=== PATIENT | female | born 1975 | race Two or more races ===

== ENCOUNTER 2017-02-19 15:09 | Emergency (ER) | payer MEDICAID ==
[2017-02-19] MEDS ORDERED: KETOROLAC TROMETHAMINE 30 MG/ML 1 ML VIAL ONE (16:32)
[2017-02-19] MEDS ORDERED: ONDANSETRON 4 MG/2ML 2 ML VIAL ONE (16:32)
[2017-02-19 16:47] LABS: ABSOLUTE NEUTROPHIL COUNT 5.7 K/mm3 (1.8-7.7); BASO % 0.4 % (0.2-1.0); EOS # 0.1 (0.0-0.5); EOS % 1.1 % (0.9-2.9); HEMATOCRIT 34.7 % (37.0-47.0); IMM NEUT% 0.2 % (0-1); LYMPH % 24.1 % (15-45); MEAN CELL VOLUME 79.8 fl (81.0-99.0); MEAN CORPUSCULAR HEMOGLOBIN 25.3 pg (27.0-31.0); MEAN CORPUSCULAR HGB CONC 31.7 g/dl (33.0-37.0); MEAN PLATELET VOLUME 10.3 fl (7.4-10.4); MONO # 0.5 (0.0-0.8); MONO % 5.6 % (4-12); NEUT % 68.6 % (43-75); PLATELET COUNT 183 K/mm3 (130-400); RED CELL DISTRIBUTION WIDTH 14.9 % (11.5-14.5)
[2017-02-19 17:01] LABS: ALB/GLOB RATIO 1.3 (>1.0); ALBUMIN 4.1 gm/dL (3.5-5.7); CALCIUM 9.2 mg/dL (8.6-10.3)
--- NOTE | 2017-02-19 17:20 | RAD ---
CHEST 2 VIEWS HISTORY: Chest pain. Frontal and lateral chest radiographs dated 02/19/2017. COMPARISON: 09/21/2015 FINDINGS: FOCAL AIRSPACE OPACITY: No gross airspace consolidation. PLEURAL EFFUSION: None. CARDIOMEDIASTINAL SILHOUETTE: Nonenlarged. PNEUMOTHORAX: None identified. OSSEOUS STRUCTURES: Minor thoracic disc degeneration. IMPRESSION: No acute cardiopulmonary process noted.
== END 2017-02-19 18:03 | disposition home or self-care (01) ==
LOC: ED 15:09
DX: M94.0 Chondrocostal junction syndrome [Tietze] (principal); J45.909 Unspecified asthma, uncomplicated; E03.9 Hypothyroidism, unspecified; Z79.899 Other long term (current) drug therapy
CPT/HCPCS: 83690; 85379; 84703; 85025; 80053; 84484; 71020; 96375; 99283 ×2; 96374; 93005; J1885; J2405

== ENCOUNTER 2017-03-03 21:56 | Emergency (ER) | payer MEDICAID ==
[2017-03-04] MEDS ORDERED: HYDROCODONE/ACETAMINOPHEN 5/325MG TABLET ONE (00:16)
[2017-03-04] MEDS ORDERED: KETOROLAC TROMETHAMINE 60 MG/2 ML VIAL ONE (00:16)
[2017-03-04] MEDS ORDERED: ONDANSETRON 4 MG ODT TAB ONE (00:16)
--- NOTE | 2017-03-04 08:19 | RAD ---
ELBOW -LEFT 3-4 VIEWS HISTORY: Ground-level fall yesterday. Injury to left elbow. Initial encounter. COMPARISONS: None FINDINGS: AP, lateral and oblique views of the left elbow do not show fracture, dislocation, radiopaque foreign body or soft tissue deformity. There may be some subtle erosive change versus subchondral cystic change along the olecranon process at the triceps insertion best seen on lateral view. No elbow joint effusion. Soft tissue swelling is noted along the dorsal aspect of the proximal ulna. IMPRESSION: Soft tissue swelling without fracture or dislocation. Other findings as above.
--- NOTE | 2017-03-04 08:24 | RAD ---
03/04/2017 8:16 AM CHEST - 2 VIEWS History: Ground level fall yesterday. Initial encounter. Comparison: 02/19/2017 Findings: Two views of the chest are obtained. The lungs are clear with out effusion or pneumothorax. The cardiomediastinal silhouette is unremarkable.. The osseous structures are intact.. IMPRESSION: No acute intrathoracic process.
--- NOTE | 2017-03-04 08:25 | RAD ---
HISTORY: Fall. Initial encounter. COMPARISON: None TECHNIQUE:Three views Foot Laterality:Left FINDINGS: Bones: No fracture or dislocation. Joints: Normal. Soft tissue: Normal IMPRESSION: No fracture or dislocation.
== END 2017-03-04 01:44 | disposition home or self-care (01) ==
LOC: ED 21:56
DX: S50.12XA Contusion of left forearm, initial encounter (principal); S90.32XA Contusion of left foot, initial encounter; J45.909 Unspecified asthma, uncomplicated; S30.0XXA Contusion of lower back and pelvis, initial encounter; E03.9 Hypothyroidism, unspecified; W01.0XXA Fall on same level from slipping, tripping and stumbling without subsequent striking against object, initial encounter; Y92.9 Unspecified place or not applicable